=== PATIENT | male | born 1940 | race Caucasian/White ===

== ENCOUNTER 2017-11-26 23:49 | Emergency (ER) | payer MEDICARE, BC ==
[~2017-11-26] VITALS: Ht 182.9 cm; Wt 66.0 kg
[~2017-11-26 23:49] MED LIST: CALC250T2 PO; CITA20TA19 PO; CLOP75TA35 PO; FINA5TAB11 PO; FLO0.4C PO; LISI-600 PO; LOSA25TA21 PO; MULT1TAB74 PO
[2017-11-27 02:45] VITALS: BP 141/83
== END 2017-11-27 02:30 | disposition home or self-care (01) ==
LOC: ER 23:50
DX: S30.22XA Contusion of scrotum and testes, initial encounter (principal); I48.91 Unspecified atrial fibrillation; Z98.84 Bariatric surgery status; Z79.899 Other long term (current) drug therapy; X58.XXXA Exposure to other specified factors, initial encounter; Y93.89 Activity, other specified; Y92.89 Other specified places as the place of occurrence of the external cause; Y99.8 Other external cause status
CPT/HCPCS: 99283

== ENCOUNTER 2020-06-14 11:19 | Emergency (ER) | payer MEDICARE, BC ==
[~2020-06-14] VITALS: Ht 193 cm; Wt 87.0 kg
[~2020-06-14 11:19] MED LIST changes: -LOSA25TA21 PO; +LOSA25TA41 PO; +MULT-620 PO; -MULT1TAB74 PO
[2020-06-14 11:53] VITALS: BP 142/95
[2020-06-14] MEDS ORDERED: TETanus/Pertussis (Acell)/Diphther VAC/PF (Tdap-Adult) 0.5ml syringe IMVAC ONE (13:00)
== END 2020-06-14 14:04 | disposition home or self-care (01) ==
LOC: ER 11:21
DX: L03.114 Cellulitis of left upper limb (principal); I48.91 Unspecified atrial fibrillation; Z98.84 Bariatric surgery status; Z98.890 Other specified postprocedural states; Z79.899 Other long term (current) drug therapy
CPT/HCPCS: 90471; 90715; 99283